=== PATIENT | male | born 1980 | race Caucasian/White ===

== ENCOUNTER 2018-08-18 18:52 | Emergency (ER) | payer OTHER ==
[2018-08-18] MEDS ORDERED: NS 1,000 ML IV ONE (19:16)
--- NOTE | 2018-08-18 19:21 | EDPHY ---
H & P Time Seen by Provider: 08/18/18 19:07 HPI/ROS: Chief complaint. Chest pain HPI. Patient is 38-year-old male visiting from [place]. He did and edible 2 days ago. He had nausea vomiting and felt quite strange. He had discomfort to both shoulders but not anterior chest pain. He had anxiety. Slight shortness of breath. He arrived from [place] 5 days ago. He continues to have anxiety but no further chest discomfort. No history of heart problems or diabetes. Apparently borderline untreated hypertension currently. No fever cough. No unusual leg pain or swelling. ROS 10 systems were reviewed and negative with the exception of the elements mentioned in the history of present illness Past Medical/Surgical History: Healthy. Borderline hypertension No family history of early coronary artery disease Social History: , nonsmoker, no alcohol Smoking Status: Never smoked Physical Exam: General Appearance: Alert well-developed male mild distress vital signs significant for initial blood pressure 148/120 Eyes: Pupils equal and round no pallor or injection. ENT, Mouth: Mucous membranes are moist. Respiratory: There are no retractions, lungs are clear to auscultation. Cardiovascular: Regular rate and rhythm. Gastrointestinal: Abdomen is soft and nontender, no masses, bowel sounds normal. Neurological: Awake and alert, sensory and motor exams grossly normal. Skin: Warm and dry, no rashes. Musculoskeletal: Neck is supple nontender. Extremities symmetrical, full range of motion. Psychiatric: Patient is oriented X 3, there is no agitation. Constitutional: Initial Vital Signs Temperature (C) 36.5 C 08/18/18 18:55 Heart Rate 92 08/18/18 18:55 Respiratory Rate 18 08/18/18 18:55 Blood Pressure 148/120 H 08/18/18 18:55 O2 Sat (%) 94 08/18/18 18:55 O2 Delivery Mode Room Air Allergies/Adverse Reactions: Penicillins Allergy (Verified 08/18/18 18:54) Home Medications: Medication Instructions Recorded Co Q-10 08/18/18 Fish Oil 1,000 mg Softgel 08/18/18 Vitamins A and D 08/18/18 Medical Decision Making - Diagnostics EKG Interpretation: EKG interpreted by shows normal sinus rhythm normal interval and axis. QRS is normal there is no significant ST elevation or depression. No arrhythmia. The rate is 98 Imaging Results: Imaging Impressions Chest X-Ray 08/18/18 19:16 Impression: Negative. Chest x-ray interpreted by me is negative Procedures: IV normal saline, monitor Ativan for anxiety ED Course/Re-evaluation: On re-evaluation patient is stable. The patient his and I discussed imaging lab EKG findings. We discussed treatment plan including criteria for return importance of follow-up and further evaluation upon return home to [place]. They expressed understanding and agreement. Patient would like medication for anxiety and he will be given take-home bottle of Ativan but no prescription Differential Diagnosis: I considered acute coronary syndrome, pulmonary embolus, pneumonia. - Data Points Laboratory Results: Laboratory Results 08/18/18 19:15 08/18/18 19:15 08/18/18 08/18/18 08/18/18 19:21 19:15 19:15 WBC RBC Hgb Hct MCV MCH MCHC RDW Plt Count MPV Neut % (Auto) Lymph % (Auto) [place] % (Auto) Eos % (Auto) Baso % (Auto) Nucleat RBC Rel Count Absolute Neuts (auto) Absolute Lymphs (auto) Absolute Monos (auto) Absolute Eos (auto) Absolute Basos (auto) Absolute Nucleated RBC Immature Gran % Immature Gran # D-Dimer 0.33 ug/mLFEU ug/mLFEU (0.00-0.50) Sodium 136 mEq/L mEq/L (135-145) Potassium 3.8 mEq/L mEq/L (3.5-5.2) Chloride 100 mEq/L mEq/L (97-110) Carbon Dioxide 24 mEq/l mEq/l (22-31) Anion Gap 12 mEq/L mEq/L (6-14) BUN 15 mg/dL mg/dL (7-23) Creatinine 0.8 mg/dL mg/dL (0.7-1.3) Estimated GFR > 60 Glucose 121 mg/dL H mg/dL (70-100) Calcium 9.8 mg/dL mg/dL (8.5-10.4) POC Troponin I 0.00 ng/mL ng/mL (0.00-0.08) 08/18/18 19:15 WBC 7.97 10^3/uL 10^3/uL (3.80-9.50) RBC 5.42 10^6/uL 10^6/uL (4.40-6.38) Hgb 16.5 g/dL g/dL (13.7-17.5) Hct 45.8 % % (40.0-51.0) MCV 84.5 fL fL (81.5-99.8) MCH 30.4 pg pg (27.9-34.1) MCHC 36.0 g/dL g/dL (32.4-36.7) RDW 12.6 % % (11.5-15.2) Plt Count 210 10^3/uL 10^3/uL (150-400) MPV 10.2 fL fL (8.7-11.7) Neut % (Auto) 62.6 % % (39.3-74.2) Lymph % (Auto) 27.4 % % (15.0-45.0) [place] % (Auto) 6.4 % % (4.5-13.0) Eos % (Auto) 2.5 % % (0.6-7.6) Baso % (Auto) 0.6 % % (0.3-1.7) Nucleat RBC Rel Count 0.0 % % (0.0-0.2) Absolute Neuts (auto) 4.99 10^3/uL 10^3/uL (1.70-6.50) Absolute Lymphs (auto) 2.18 10^3/uL 10^3/uL (1.00-3.00) Absolute Monos (auto) 0.51 10^3/uL 10^3/uL (0.30-0.80) Absolute Eos (auto) 0.20 10^3/uL 10^3/uL (0.03-0.40) Absolute Basos (auto) 0.05 10^3/uL 10^3/uL (0.02-0.10) Absolute Nucleated RBC 0.00 10^3/uL 10^3/uL (0-0.01) Immature Gran % 0.5 % % (0.0-1.1) Immature Gran # 0.04 10^3/uL 10^3/uL (0.00-0.10) D-Dimer Sodium Potassium Chloride Carbon Dioxide Anion Gap BUN Creatinine Estimated GFR Glucose Calcium POC Troponin I Medications Given: Discontinued Medications Sodium Chloride (Ns) 1,000 mls @ 0 mls/hr IV EDNOW ONE; Wide Open PRN Reason: Protocol Stop: 08/18/18 19:17 Last Admin: 08/18/18 19:31 Dose: 1,000 mls Lorazepam (Ativan) 1 mg PO EDNOW ONE Stop: 08/18/18 19:38 Last Admin: 08/18/18 19:41 Dose: 1 mg Lorazepam (Ativan 1 Mg Prepack#4) 1 btl TAKEHOME EDNOW ONE Stop: 08/18/18 20:20 Last Admin: 08/18/18 20:30 Dose: 1 btl Point of Care Test Results: Chemistry 08/18/18 19:21 POC Troponin I 0.00 ng/mL ng/mL (0.00-0.08) Departure - Departure Disposition: Home, Routine, Self-Care Clinical Impression: Chest pain Qualifiers: Chest pain type: unspecified Qualified Code(s): R07.9 - Chest pain, unspecified Condition: Good Instructions: Lorazepam (By mouth), Chest Pain (ED) Additional Instructions: Easy activity Ativan 1 pill every 6-8 hours as needed for anxiety Return for worsening symptoms Follow-up with your regular physician upon return home to [place] for further evaluation blood pressure check Referrals: SOCORRO KRUGER [Other] - As per Instructions
[2018-08-18 19:31] LABS: PLATELET COUNT 210 10^3/uL (150-400)
[2018-08-18] MEDS ORDERED: LORazepam 1 MG TAB PO ONE (19:37)
[2018-08-18] MEDS ORDERED: LORAZEPAM 1 MG PREPACK#4 BTL TAKEHOME ONE (20:19)
[2018-08-18 20:32] VITALS: BP 156/101
--- NOTE | 2018-08-18 21:23 | CPEKG ---
Test Reason : OPEN Blood Pressure : / mmHG Vent. Rate : 098 BPM Atrial Rate : 099 BPM P-R Int : 168 ms QRS Dur : 103 ms QT Int : 349 ms P-R-T Axes : 065 231 040 degrees QTc Int : 446 ms Sinus rhythm Probable left atrial enlargement Consider right ventricular hypertrophy Confirmed by Payam Styles ([id number]) on 08/18/2018 9:22:58 PM Referred By: Payam Styles Confirmed By:Payam Styles
== END 2018-08-18 20:32 | disposition home or self-care (01) ==
DX: R07.9 Chest pain, unspecified (principal); R03.0 Elevated blood-pressure reading, without diagnosis of hypertension
CPT/HCPCS: 84484-ER